=== PATIENT | male | born 1980 | race Caucasian/White ===

== ENCOUNTER 2021-11-11 19:51 | Emergency (ER) | payer BC ==
[2021-11-11 20:32] VITALS: BP 148/86; PULSE 74
[2021-11-11] MEDS ORDERED: HYDROmorphone 0.5 MG/0.5 ML Syringe IVPUSH ONE (20:49)
[2021-11-11] MEDS ORDERED: Lactated Ringers 1,000 ML IV SCH (21:00)
[2021-11-11] MEDS ORDERED: Iopamidol 612 MG/ML 100 ML Bottle IV PRN (21:11)
[2021-11-11] MEDS ORDERED: Sodium Chloride 0.9% 100 ML IV SCH (21:15)
== END 2021-11-11 23:14 | disposition home or self-care (01) ==
LOC: JP.ED 19:51
DX: R10.31 Right lower quadrant pain (principal); Z88.2 Allergy status to sulfonamides; Z79.899 Other long term (current) drug therapy; Z87.891 Personal history of nicotine dependence
CPT/HCPCS: 36415; 74177; 80048; 81001; 85025; 86140; 96361; 96374; 99284; J1170; J3490; J7120; Q9967; 99282

== ENCOUNTER 2022-10-28 17:00 | Emergency (ER) | payer BC, MEDICAID ==
[2022-10-28 19:34] VITALS: BP 135/86; PULSE 64
== END 2022-10-28 21:08 | disposition home or self-care (01) ==
LOC: JP.ED 17:00
DX: S69.91XA Unspecified injury of right wrist, hand and finger(s), initial encounter (principal); Z91.048 Other nonmedicinal substance allergy status; Y93.72 Activity, wrestling
CPT/HCPCS: 73140-26-F7; 73140-F7; 99282; 99283